=== PATIENT | male | born 1990 | race Caucasian/White ===

== ENCOUNTER 2022-09-06 17:22 | Inpatient (IN) | payer OTHER ==
[~2022-09-06] VITALS: Ht 170.2 cm; Wt 128.9 kg
[2022-09-06] MEDS ORDERED: ONDANSETRON HCL 4MG/2ML INJ IV STA (18:15)
[2022-09-06] MEDS ORDERED: SODIUM CHLORIDE 0.9% 1,000 ML IV ONE (18:15)
[2022-09-06] MEDS ORDERED: MORPHINE SULFATE 4 MG/ML CPJ (NOT FOR IM USE) IV ONE (18:15)
[2022-09-06] MEDS ORDERED: MORPHINE SULFATE 4 MG/ML CPJ (NOT FOR IM USE) IV STA (18:15)
[2022-09-06] MEDS ORDERED: ETOMIDATE 2MG/ML 10ML VIAL IV ONE (18:15)
[2022-09-06] MEDS ORDERED: TETANUS, DIPHTHERIA, PERTUSSIS VAC/PF 0.5ML (>10YR OLD) IM ONE (18:30)
[2022-09-06] MEDS ORDERED: CEFAZOLIN 1000MG PREMIX 50 ML IV ONE (18:45)
[2022-09-06 18:51] LABS: CHLORIDE 107 mEq/L (98-107)
[2022-09-06 19:00] LABS: BASOPHILS % 0.4 % (0.0-2.0); HEMATOCRIT. 49.3 % (42.0-52.0); HEMOGLOBIN. 16.8 g/dL (14.0-18.0); LYMPHOCYTES % 25.2 % (20.0-50.0); MEAN CORPUSCULAR HEMOGLOBIN 30.4 pg (28.0-32.0); MEAN CORPUSCULAR VOLUME 89.3 fL (80.0-94.0); MEAN PLATELET VOLUME 7.4 fl (7.4-10.4); MONOCYTES % 5.7 % (2.0-8.0); NEUTROPHILS % 67.7 % (40.0-76.0); PLATELET 296 x1000/uL (130-400); RED BLOOD CELL COUNT 5.52 mill/uL (4.7-6.1); RED CELL DISTRIBUTION WIDTH 13.7 % (11.6-14.6)
[2022-09-06 20:01] LABS: PARTIAL THROMBOPLASTIN TIME 25.8 sec (23.4-31.0); PROTHROMBIN TIME 10.5 sec (9.6-11.0)
[2022-09-06] MEDS ORDERED: GENTAMICIN 80MG PREMIX 100 ML IV ONE (21:15)
[2022-09-06] MEDS ORDERED: ACETAMINOPHEN 325MG TABLET PO PRN (22:30)
[2022-09-06] MEDS ORDERED: GUAIFENESIN 200MG/10ML SUGAR FREE UDC PO PRN (22:30)
[2022-09-06] MEDS ORDERED: CLONIDINE 0.1MG TABLET PO PRN (22:30)
[2022-09-06] MEDS ORDERED: MAGNESIUM/ALUMINUM HYDROXIDE/SIMETHICONE 30ML UDC PO PRN (22:30)
[2022-09-06] MEDS ORDERED: IPRATROPIUM/ALBUTEROL 0.5-3(2.5)MG/3ML NEB HHN PRN (22:30)
[2022-09-06] MEDS ORDERED: DOCUSATE SODIUM 100MG CAPSULE PO PRN (22:30)
[2022-09-06] MEDS ORDERED: ONDANSETRON HCL 4MG/2ML INJ IV PRN (22:30)
[2022-09-06 23:40] LABS: D-DIMER 0.36 mg/L FEU (<0.50); PROTHROMBIN TIME 10.7 sec (9.6-11.0)
[2022-09-07] VITALS: BP 133/68; PULSE 85; RESP 20; TEMP 98.8
[2022-09-07 00:40] VITALS: BP 133/63; PULSE 85; RESP 20; TEMP 98.8
[2022-09-07] MEDS: MORPHINE SULFATE 2 MG/ML CPJ (NOT FOR IM USE) IV PRN ×2 (01:32→08:52)
[2022-09-07 04:00] VITALS: BP 123/60; PULSE 99; RESP 19; TEMP 98.8
[2022-09-07 07:01] LABS: BASOPHILS % 0.2 % (0.0-2.0); EOSINOPHILS % 0.1 % (0.0-5.0); HEMATOCRIT. 44.8 % (42.0-52.0); HEMOGLOBIN. 15.2 g/dL (14.0-18.0); LYMPHOCYTES % 9.9 % (20.0-50.0); MEAN CORPUSCULAR HEMOGLOBIN 29.8 pg (28.0-32.0); MEAN CORPUSCULAR VOLUME 87.9 fL (80.0-94.0); MEAN PLATELET VOLUME 7.5 fl (7.4-10.4); MONOCYTES % 7.2 % (2.0-8.0); NEUTROPHILS % 82.6 % (40.0-76.0); PLATELET 270 x1000/uL (130-400); RED BLOOD CELL COUNT 5.09 mill/uL (4.7-6.1); RED CELL DISTRIBUTION WIDTH 13.4 % (11.6-14.6)
[2022-09-07 07:52] LABS: CHLORIDE 104 mEq/L (98-107)
[2022-09-07 08:00] VITALS: BP 116/60; PULSE 87; RESP 18; TEMP 97.8
[2022-09-07 08:05] LABS: HDL CHOLESTEROL 80 mg/dL (40-59); LDL CHOLESTEROL 81 mg/dL (5-100); T4 FREE 1.04 ng/dL (0.76-1.46)
[2022-09-07] MEDS ORDERED: ENOXAPARIN 40MG/0.4ML SYR SUBCUT SCH (09:00)
[2022-09-07 12:00] VITALS: BP 117/54; PULSE 94; RESP 20; TEMP 98
[2022-09-07] MEDS ORDERED: POLYMYXIN B SULFATE 500000 UNITS/VIAL ONE ×2 (14:43→14:57)
[2022-09-07] MEDS ORDERED: LIDOCAINE HCL 1%/EPI 1:200,000 30 ML VIAL ONE (14:43)
[2022-09-07] MEDS ORDERED: VANCOMYCIN HCL 1 GM/VIAL ONE ×2 (14:58→17:04)
[2022-09-07] MEDS ORDERED: PROPOFOL 200MG/20ML VIAL IV ONE (16:31)
[2022-09-07] MEDS ORDERED: LIDOCAINE HCL 1% 10 MG/ML 10ML VIAL ONE (16:32)
[2022-09-07] MEDS ORDERED: MIDAZOLAM HCL 2 MG/2 ML VIAL ONE (16:33)
[2022-09-07] MEDS ORDERED: FENTANYL CITRATE/PF 50MCG/ML 2ML VIAL ONE ×2 (16:36→16:50)
[2022-09-07] MEDS ORDERED: LIDOCAINE 2% 6ML GLYDO MM ONE ×2 (16:45)
[2022-09-07] MEDS ORDERED: DEXAMETHASONE 4MG/ML 1ML VIAL ONE (16:49)
[2022-09-07] MEDS ORDERED: ONDANSETRON HCL 4MG/2ML INJ ONE (16:49)
[2022-09-07] MEDS ORDERED: CEFAZOLIN SODIUM 1000MG/VIAL ONE (16:49)
[2022-09-07] MEDS ORDERED: SUCCINYLCHOLINE CHLORIDE 200MG/10ML IV ONE (17:01)
[2022-09-07] MEDS ORDERED: HYDROMORPHONE HCL/PF 2MG/ML CPJ IV PRN (17:15)
[2022-09-07] MEDS ORDERED: FENTANYL CITRATE/PF 50MCG/ML 2ML VIAL IV PRN (17:15)
[2022-09-07] MEDS ORDERED: ONDANSETRON HCL 4MG/2ML INJ IV PRN (17:15)
[2022-09-07] MEDS ORDERED: MEPERIDINE HCL/PF 25MG/ML CPJ IV PRN (17:15)
[2022-09-07] MEDS ORDERED: KETOROLAC 30MG/ML VIAL ONE (18:00)
[2022-09-07 20:00] VITALS: BP 139/63; PULSE 91; RESP 18; TEMP 97.3
[2022-09-07] MEDS ORDERED: FAMOTIDINE 20MG TABLET PO SCH (21:00)
[2022-09-07] MEDS: KETOROLAC 15MG/ML VIAL IV PRN (21:39)
[2022-09-07] MEDS: CEFAZOLIN 1000MG PREMIX 50 ML IV SCH (21:40)
[2022-09-07] MEDS ORDERED: CEFAZOLIN SODIUM 1000MG/VIAL IV SCH (22:00)
[2022-09-08] VITALS: BP 104/65; PULSE 67; RESP 18; TEMP 97.7
[2022-09-08 04:00] VITALS: BP 117/62; PULSE 69; RESP 18; TEMP 97.9
[2022-09-08] MEDS: CEFAZOLIN 1000MG PREMIX 50 ML IV SCH (05:44)
[2022-09-08] MEDS: KETOROLAC 15MG/ML VIAL IV PRN ×2 (06:20→13:26)
[2022-09-08 07:41] LABS: BASOPHILS % 0.1 % (0.0-2.0); HEMOGLOBIN. 14.8 g/dL (14.0-18.0); LYMPHOCYTES % 9.2 % (20.0-50.0); MEAN CORPUSCULAR HEMOGLOBIN 30.7 pg (28.0-32.0); MEAN CORPUSCULAR VOLUME 87.5 fL (80.0-94.0); MEAN PLATELET VOLUME 7.6 fl (7.4-10.4); MONOCYTES % 8.7 % (2.0-8.0); PLATELET 264 x1000/uL (130-400); RED BLOOD CELL COUNT 4.81 mill/uL (4.7-6.1); RED CELL DISTRIBUTION WIDTH 13.6 % (11.6-14.6)
[2022-09-08 07:55] LABS: CHLORIDE 103 mEq/L (98-107)
[2022-09-08 08:00] VITALS: BP 108/51; PULSE 87; RESP 18; TEMP 98.1
[2022-09-08 12:00] VITALS: BP 116/56; PULSE 77; RESP 18; TEMP 98
[2022-09-08] MEDS ORDERED: CEPH500C2 PO (12:56)
[2022-09-08 14:43] VITALS: BP 123/67; PULSE 73; TEMP 97.7; O2SAT 99
[2022-09-08 16:00] VITALS: BP 117/66; PULSE 100; RESP 20; TEMP 97.9
== END 2022-09-08 18:10 | disposition home or self-care (01) | DRG 493 ==
LOC: ER 17:22 → 6EST 21:15
PROVIDERS: ADMIT Internal Medicine; ATTEND Internal Medicine
PROC: 0QSKXZZ Reposition Left Fibula, External Approach (ICD-10-PCS; 2022-09-06)
PROC: 0QSK04Z Reposition Left Fibula with Internal Fixation Device, Open Approach (ICD-10-PCS; principal; 2022-09-07)
PROC: BQ1HZZZ Fluoroscopy of Left Ankle (ICD-10-PCS; 2022-09-07)
DX: S93.05XA Dislocation of left ankle joint, initial encounter (principal); Z68.41 Body mass index [BMI] 40.0-44.9, adult; E66.9 Obesity, unspecified; R74.01 Elevation of levels of liver transaminase levels; S82.62XA Displaced fracture of lateral malleolus of left fibula, initial encounter for closed fracture; W10.8XXA Fall (on) (from) other stairs and steps, initial encounter; Y93.01 Activity, walking, marching and hiking; Z83.3 Family history of diabetes mellitus; Y92.89 Other specified places as the place of occurrence of the external cause; Y99.8 Other external cause status; Z20.822 Contact with and (suspected) exposure to COVID-19
CPT/HCPCS: 36415; 71045; 73610; 76000; 80048; 80053; 80061; 83036; 84439; 84443; 85025; 85379; 86850; 86900; 87070; 87075; 87426; 90715; 93005; 97162; 99285; J0330; J0690; J1100; J1580; J1885; J2250; J2270; J2405; J2704; J3010; J3370; J3490; J7030